=== PATIENT | female | born 1990 | race Caucasian/White ===

== ENCOUNTER 2018-11-19 11:11 | Emergency (ER) | payer BC, OTHER ==
[~2018-11-19] VITALS: Ht 167.6 cm; Wt 99.8 kg
[2018-11-19 11:11] VITALS: BP_SYST 131
--- NOTE | 2018-11-19 11:12 | NUR ---
BROUGHT BACK TO BED #7 AND TRIAGED. REPORT GIVEN TO PATTIE
[2018-11-19] MEDS ORDERED: NACL 0.9% 1,000 ML IV ONE (11:14)
--- NOTE | 2018-11-19 11:15 | NUR ---
Patient arrived via POV, AAOx4, and ambulatory with steady gait. Patient c/c of lower left abdominal pain rated at 6/10. Patient estimates 7 weeks , history of ectopic pregancy to left fallopian tube, partial removal of left tube. Patient states pain began suddenly and she felt faint at onset. Patient 4, para 1. Will continue to follow up and monitor.
--- NOTE | 2018-11-19 11:17 | NUR ---
ER at bedside examining patient.
--- NOTE | 2018-11-19 11:35 | NUR ---
Patient taken to ultrasound via wheelchair. Patient in stable condition.
[2018-11-19 11:57] LABS: BILIRUBIN,URINE NEGATIVE (NEGATIVE); BLOOD, URINE NEGATIVE (NEGATIVE); CLARITY/URINE CLEAR (CLEAR); COLOR,URINE YELLOW (YELLOW); GLUCOSE,URINE NEGATIVE (NEGATIVE); KETONES,URINE TRACE (NEGATIVE); LEUKOCYTE ESTERASE ,URINE NEGATIVE (NEGATIVE); NITRITE, URINE NEGATIVE (NEGATIVE); PROTEIN URINE NEGATIVE (NEGATIVE); UROBILINOGEN,URINE 0.2 (0.2-1.0)
--- NOTE | 2018-11-19 12:03 | NUR ---
Patient returned from ultrasound via wheelchair, escorted by US tech.
[2018-11-19 12:07] LABS: EOSINOPHILS # (AUTO) 0.1 K/uL (0.0-0.4); MONOCYTES # (AUTO) 0.3 K/uL (0.0-1.0); WHITE BLOOD COUNT (AUTO) 8.2 K/uL (4.8-10.8)
[2018-11-19 12:10] LABS: CALCIUM 8.8 mg/dL (8.4-11.0); CREATININE 0.59 mg/dL (0.55-1.30); POTASSIUM 3.6 mmol/L (3.5-5.1)
[2018-11-19 12:13] LABS: LYMPHOCYTES # (AUTO) 1.5 K/uL (1.0-5.5); NEUTROPHILS # (AUTO) 6.3 K/uL (1.8-7.7)
[2018-11-19 12:16] LABS: BASOPHILS % (AUTO) 0.5 % (0.0-2.0); EOSINOPHILS % (AUTO) 1.1 % (0.0-4.0); HEMATOCRIT 35.8 % (36-48); HEMOGLOBIN 11.2 g/dL (12.0-16.0); LYMPHOCYTES % (AUTO) 18.4 % (20.5-51.5); MEAN CORPUSCULAR HEMOGLOBIN 22 pg (27-31); MEAN CORPUSCULAR HGB CONC 31 % (32-36); MEAN CORPUSCULAR VOLUME 69 fL (79.0-98.0); PLATELET COUNT (AUTO) 315 K/uL (130-430); RED BLOOD CELL COUNT(AUTO) 5.21 MIL/uL (4.2-6.2); RED CELL DISTRIBUTION WIDTH 16.6 % (9.0-15.0)
[2018-11-19 12:35] LABS: ALBUMIN 3.6 g/dL (3.4-4.8); TOTAL BILIRUBIN 0.2 mg/dL (0.0-1.0)
[2018-11-19] MEDS ORDERED: ACETAMINOPHEN 500 MG TABLET PO ONE (12:45)
[2018-11-19 13:23] VITALS: BP_SYST 128
--- NOTE | 2018-11-19 13:24 | NUR ---
Patient given written and verbal discharge instructions and verbalizes understanding. ER MD discussed with patient the results and treatment provided. Patient in stable condition. ID arm band removed. IV catheter removed intact and dressing applied, no active bleeding. Rx of Tylenol given. Patient educated on pain management and to follow up with PMD. Pain Scale 2/10 tolerable for pt. Opportunity for questions provided and answered. Medication side effect fact sheet provided.
== END 2018-11-19 13:24 | disposition home or self-care (01) ==
LOC: SED 11:11
DX: O26.891 Other specified pregnancy related conditions, first trimester (principal); R10.32 Left lower quadrant pain; R03.0 Elevated blood-pressure reading, without diagnosis of hypertension; E11.9 Type 2 diabetes mellitus without complications; E03.9 Hypothyroidism, unspecified; Z86.2 Personal history of diseases of the blood and blood-forming organs and certain disorders involving the immune mechanism; Z91.018 Allergy to other foods; Z3A.01 Less than 8 weeks gestation of pregnancy
CPT/HCPCS: 36415; 76801; 76817; 80053; 81003; 81025; 84702; 85025; 86901; 99284; J7030